=== PATIENT | male | born 1940 | race Asian ===

== ENCOUNTER 2018-11-16 09:42 | Day surgery (SDC) | payer OTHER, BC ==
[2018-11-16] MEDS ORDERED: ZOLEDRONIC ACID/MAN/WATER 5 MG/100 ML INFUS..BTL IVPB ONE (10:00)
[2018-11-16 15:55] VITALS: BP 124/86; PULSE 66; TEMP 98.1
== END 2018-11-16 11:45 | disposition home or self-care (01) ==
LOC: JCHEMO 09:42
PROVIDERS: ATTEND Internal Medicine Endocrinology, Diabetes & Metabolism
PROC: 3E033GC Introduction of Other Therapeutic Substance into Peripheral Vein, Percutaneous Approach (ICD-10-PCS; principal; 2018-11-16)
DX: M81.0 Age-related osteoporosis without current pathological fracture (principal)
CPT/HCPCS: 96365; J3489

== ENCOUNTER 2019-10-18 10:46 | Day surgery (SDC) | payer OTHER, BC ==
[2019-10-18] MEDS ORDERED: ZOLEDRONIC ACID/MAN/WATER 5 MG/100 ML INFUS..BTL IVPB ONE (12:00)
[2019-10-18 12:26] VITALS: TEMP 97.1
[2019-10-18 13:05] VITALS: BP 142/68; PULSE 75
== END 2019-10-18 13:16 | disposition home or self-care (01) ==
LOC: JCHEMO 10:46
PROVIDERS: ATTEND Internal Medicine Endocrinology, Diabetes & Metabolism
PROC: 3E033GC Introduction of Other Therapeutic Substance into Peripheral Vein, Percutaneous Approach (ICD-10-PCS; principal; 2019-10-18)
DX: M81.0 Age-related osteoporosis without current pathological fracture (principal)
CPT/HCPCS: 96365; J3489

== ENCOUNTER 2020-10-12 10:46 | Day surgery (SDC) | payer OTHER, BC ==
[2020-10-12] MEDS ORDERED: ZOLEDRONIC ACID/MAN/WATER 5 MG/100 ML INFUS..BTL IVPB ONE (11:15)
[2020-10-12 11:45] VITALS: TEMP 98.8
[2020-10-12 13:02] VITALS: BP 126/59; PULSE 60
== END 2020-10-12 12:40 | disposition home or self-care (01) ==
LOC: FINFUSION 10:46 → FM/S 10:51 → FINFUSION 12:40
PROVIDERS: ATTEND Internal Medicine Endocrinology, Diabetes & Metabolism
PROC: 3E033GC Introduction of Other Therapeutic Substance into Peripheral Vein, Percutaneous Approach (ICD-10-PCS; principal; 2020-10-12)
DX: M81.0 Age-related osteoporosis without current pathological fracture (principal)
CPT/HCPCS: 96365; J3489

== ENCOUNTER 2021-10-22 15:44 | Day surgery (SDC) | payer OTHER, BC ==
[2021-10-22] MEDS ORDERED: ACETAMINOPHEN 325 MG TABLET (FP) PO ONE (16:15)
[2021-10-22] MEDS ORDERED: ZOLEDRONIC ACID/MAN/WATER 5 MG/100 ML INFUS..BTL IVPB ONE (16:30)
[2021-10-22 17:33] VITALS: BP 121/67; PULSE 67; RESP 18; TEMP 97.8
== END 2021-10-22 17:00 | disposition home or self-care (01) ==
LOC: FINFUSION 15:44 → FM/S 15:44 → FINFUSION 17:00
PROVIDERS: ATTEND Internal Medicine Endocrinology, Diabetes & Metabolism
PROC: 3E033GC Introduction of Other Therapeutic Substance into Peripheral Vein, Percutaneous Approach (ICD-10-PCS; principal; 2021-10-22)
DX: M81.0 Age-related osteoporosis without current pathological fracture (principal)
CPT/HCPCS: 96365; J3489

== ENCOUNTER 2022-10-24 11:01 | Day surgery (SDC) | payer OTHER, BC ==
[2022-10-24] MEDS ORDERED: ZOLEDRONIC ACID/MAN/WATER 5 MG/100 ML INFUS..BTL IVPB ONE (11:15)
[2022-10-24 12:24] VITALS: BP 125/58; PULSE 75; RESP 18; TEMP 98.3
== END 2022-10-24 12:26 | disposition home or self-care (01) ==
LOC: FINFUSION 11:01 → FM/S 11:01 → FINFUSION 12:26
PROVIDERS: ATTEND Internal Medicine Endocrinology, Diabetes & Metabolism
PROC: 3E033GC Introduction of Other Therapeutic Substance into Peripheral Vein, Percutaneous Approach (ICD-10-PCS; principal; 2022-10-24)
DX: M81.0 Age-related osteoporosis without current pathological fracture (principal)
CPT/HCPCS: 96365; J3489

== ENCOUNTER 2023-10-27 12:00 | Day surgery (SDC) | payer OTHER, BC ==
[2023-10-27] MEDS: ACETAMINOPHEN 325 MG TABLET (FP) PO ONE (12:33)
[2023-10-27] MEDS: ZOLEDRONIC ACID/MAN/WATER 5 MG/100 ML INFUS..BTL IVPB ONE (13:12)
[2023-10-27 14:23] VITALS: BP 155/67; PULSE 78; RESP 16; TEMP 98.1
== END 2023-10-27 14:30 | disposition home or self-care (01) ==
LOC: FINFUSION 12:00 → FM/S 12:05 → FINFUSION 14:30
PROVIDERS: ATTEND Internal Medicine Endocrinology, Diabetes & Metabolism
PROC: 3E033GC Introduction of Other Therapeutic Substance into Peripheral Vein, Percutaneous Approach (ICD-10-PCS; principal; 2023-10-27)
DX: M81.0 Age-related osteoporosis without current pathological fracture (principal)
CPT/HCPCS: 96365; J3489